=== PATIENT | male | born 1965 | race Two or more races ===

== ENCOUNTER 2024-04-29 06:31 | Inpatient (IN) | payer OTHER ==
[~2024-04-29] VITALS: Ht 180.3 cm; Wt 114.1 kg
[2024-04-29] MEDS ORDERED: IOHEXOL 350 MG/ML 100 ML VIAL ONE (06:50)
[2024-04-29] MEDS ORDERED: SODIUM CHLORIDE 0.9% 100 ML ONE (06:50)
[2024-04-29 07:01] LABS: EOSINOPHILS % (AUTO) 3.5 % (1.0-6.0); HEMATOCRIT 41.4 % (41-53); HEMOGLOBIN 13.8 g/dL (13.5-17.5); LYMPHOCYTES # (AUTO) 1.5 K/uL (1.0-4.8); MEAN CORPUSCULAR HEMOGLOBIN 30.6 pg (26.0-34.0); MEAN CORPUSCULAR HGB CONC 33.3 G/dL (31.0-37.0); MEAN CORPUSCULAR VOLUME 92 fL (80-100); MONOCYTES # (AUTO) 0.5 K/uL (0.1-1.0); NEUTROPHILS # (AUTO) 4.3 K/uL (1.8-7.7); NEUTROPHILS % (AUTO) 64.5 % (40.0-70.0); PLATELET COUNT (AUTO) 288 K/uL (150-450); RED BLOOD CELL COUNT(AUTO) 4.51 MIL/uL (4.50-5.90); RED CELL DISTRIBUTION WIDTH 14.3 % (11.5-14.5); WHITE BLOOD COUNT (AUTO) 6.7 K/uL (4.5-11.0)
[2024-04-29 07:10] LABS: ANION GAP 7 mmol/L (8-16); CALCIUM, TOTAL 9.3 mg/dL (8.8-10.5); CARBON DIOXIDE 29 mmol/L (22-29); CHLORIDE 103 mmol/L (98-107); CREATININE 1.05 mg/dL (0.60-1.30); GLOMERULAR FILTR. RATE CALC > 60 mL/min (>60); GLUCOSE,RANDOM 113 mg/dL (70-110); POTASSIUM 3.8 mmol/L (3.5-5.1); SODIUM SERUM 139 mmol/L (136-145); UREA NITROGEN, BLOOD 14 mg/dL (7-18)
[2024-04-29 07:14] LABS: PROTHROMBIN TIME 10.3 SEC (9.4-11.6)
[2024-04-29 07:16] LABS: ALANINE AMINOTRANSFERASE 26 U/L (12-78); ALBUMIN 3.6 g/dL (3.4-5.0); ALKALINE PHOSPHATASE 69 U/L (46-116); ASPARTATE AMINOTRANSFERASE 23 U/L (15-37); BILIRUBIN,TOTAL 0.3 mg/dL (0.1-1.0); CHOL/HDL RATIO 3.3 (4.2-7.3); CHOLESTEROL 157 mg/dL (131-200); HDL CHOLESTEROL 48 mg/dL (40-60); LDL CHOL (CALC.) 95 mg/dL (0-130); TRIGLYCERIDES 69 mg/dL (15-150)
[2024-04-29 07:18] LABS: TROPONIN I-HIGH SENSITIVITY 22 ng/L (<76)
[2024-04-29] MEDS: SODIUM CHLORIDE 0.9% 500 ML IV ONE (07:30)
[2024-04-29] MEDS: CLOPIDOGREL BISULFATE 75 MG TABLET PO ONE (08:03)
[2024-04-29] MEDS: ASPIRIN 81 MG CHEWABLE TABLET PO ONE (08:03)
[2024-04-29] MEDS: SODIUM CHLORIDE 0.9% 1,000 ML IV ONE (08:32)
[2024-04-29 10:34] LABS: INFLUENZA A-RTPCR,COMBO NEGATIVE (NEGATIVE); INFLUENZA B-RTPCR,COMBO NEGATIVE (NEGATIVE); RESPIRATORY SYNCYTIAL VRS-PCR NEGATIVE (NEGATIVE); SARS COVID19 RTPCR, COMBO NEGATIVE (NEGATIVE)
[2024-04-29] MEDS ORDERED: ACETAMINOPHEN 325 MG TABLET PO PRN (12:30)
[2024-04-29] MEDS ORDERED: ZOLPIDEM TARTRATE 5 MG TABLET PO PRN (12:30)
[2024-04-29] MEDS ORDERED: BISACODYL 10 MG RECTAL RECTAL SUPPOSITORY PR PRN (12:30)
[2024-04-29] MEDS ORDERED: ONDANSETRON HCL 4 MG/2 ML VIAL IVP PRN (12:30)
[2024-04-29] MEDS ORDERED: HYDROCODONE/ACETAMINOPHEN 5-325 MG TABLET PO PRN (12:30)
[2024-04-29] MEDS ORDERED: MAGNESIUM HYDROXIDE SUSPENSION 30 ML UDCUP PO PRN (12:30)
[2024-04-29 12:53] LABS: TROPONIN I-HIGH SENSITIVITY 18 ng/L (<76)
[2024-04-29 13:30] VITALS: BP 150/91; PULSE 66; RESP 18; TEMP 98
[2024-04-29] MEDS ORDERED: GADOTERATE MEGLUMINE 10 MMOL/20 ML VIAL IVP ONE (14:53)
[2024-04-29] MEDS: HEPARIN SODIUM,PORCINE 5,000 UNITS/ML VIAL SQ SCH (15:53)
[2024-04-29 16:01] VITALS: BP 143/81; PULSE 57; RESP 19; TEMP 98.4
[2024-04-29 18:49] LABS: TROPONIN I-HIGH SENSITIVITY 25 ng/L (<76)
[2024-04-29 20:41] VITALS: BP 148/91; PULSE 59; RESP 18; TEMP 98.4
[2024-04-29] MEDS: DOCUSATE SODIUM 100 MG CAPSULE PO SCH (20:41)
[2024-04-29] MEDS: ATORVASTATIN CALCIUM 20 MG TABLET PO SCH (20:41)
[2024-04-29 23:36] VITALS: BP 142/82; PULSE 55; RESP 18; TEMP 98.1
[2024-04-30 04:15] VITALS: BP 122/71; PULSE 68; RESP 18; TEMP 98
[2024-04-30 06:52] LABS: BASOPHILS % (AUTO) 0.5 % (0.0-2.0); EOSINOPHILS % (AUTO) 1.5 % (1.0-6.0); HEMATOCRIT 39.5 % (41-53); HEMOGLOBIN 13.3 g/dL (13.5-17.5); LYMPHOCYTES # (AUTO) 1.4 K/uL (1.0-4.8); LYMPHOCYTES % (AUTO) 18.6 % (22.0-44.0); MEAN CORPUSCULAR HEMOGLOBIN 30.7 pg (26.0-34.0); MEAN CORPUSCULAR HGB CONC 33.6 G/dL (31.0-37.0); MEAN CORPUSCULAR VOLUME 91 fL (80-100); MONOCYTES # (AUTO) 0.5 K/uL (0.1-1.0); MONOCYTES % (AUTO) 6.7 % (2.0-9.0); NEUTROPHILS # (AUTO) 5.5 K/uL (1.8-7.7); NEUTROPHILS % (AUTO) 72.7 % (40.0-70.0); PLATELET COUNT (AUTO) 293 K/uL (150-450); RED BLOOD CELL COUNT(AUTO) 4.33 MIL/uL (4.50-5.90); RED CELL DISTRIBUTION WIDTH 14.3 % (11.5-14.5); WHITE BLOOD COUNT (AUTO) 7.5 K/uL (4.5-11.0)
[2024-04-30 07:02] LABS: ANION GAP 8 mmol/L (8-16); CALCIUM, TOTAL 8.8 mg/dL (8.8-10.5); CARBON DIOXIDE 26 mmol/L (22-29); CHLORIDE 105 mmol/L (98-107); CHOL/HDL RATIO 3.3 (4.2-7.3); CHOLESTEROL 157 mg/dL (131-200); CREATININE 0.82 mg/dL (0.60-1.30); GLOMERULAR FILTR. RATE CALC > 60 mL/min (>60); GLUCOSE,RANDOM 97 mg/dL (70-110); HDL CHOLESTEROL 48 mg/dL (40-60); LDL CHOL (CALC.) 95 mg/dL (0-130); POTASSIUM 3.3 mmol/L (3.5-5.1); SODIUM SERUM 139 mmol/L (136-145); TRIGLYCERIDES 71 mg/dL (15-150); UREA NITROGEN, BLOOD 14 mg/dL (7-18)
[2024-04-30 08:11] VITALS: BP 132/95; PULSE 59; RESP 18; TEMP 98.2
[2024-04-30] MEDS: ASPIRIN 81 MG CHEWABLE TABLET PO SCH (09:34)
[2024-04-30] MEDS: PANTOPRAZOLE SODIUM 40 MG DR TABLET PO SCH (09:34)
[2024-04-30] MEDS: CLOPIDOGREL BISULFATE 75 MG TABLET PO SCH (09:35)
[2024-04-30] MEDS: AmLODIPine BESYLATE 5 MG TABLET PO SCH (09:35)
[2024-04-30 13:09] VITALS: BP 160/99; PULSE 67; RESP 18; TEMP 97.9
[2024-04-30 19:22] VITALS: BP 157/77; PULSE 67; RESP 18; TEMP 98.3
[2024-04-30] MEDS ORDERED: POTASSIUM CHL 10 MEQ/WATER 50 ML IV PRN (22:15)
[2024-04-30 22:50] LABS: APPEARANCE,URINE CLEAR (CLEAR); BILIRUBIN,URINE NEGATIVE (NEGATIVE); COLOR,URINE LIGHT YELLOW (YELLOW); GLUCOSE, URINE (UA) NEGATIVE (NEGATIVE); LEUKOCYTE ESTERASE ,URINE NEGATIVE (NEGATIVE); NITRATE,URINE NEGATIVE (NEGATIVE); OCCULT BLOOD,URINE NEGATIVE (NEGATIVE); PROTEIN,URINE NEGATIVE (NEGATIVE); SPECIFIC GRAVITIY, URINE 1.021 (1.003-1.030); UROBILINOGEN,URINE <=1.0 mg/dL (<=1.0)
[2024-04-30 22:57] LABS: ALCOHOL, URINE DRUG SCREEN NEGATIVE (NEGATIVE); AMPHET/METH SCREEN,URINE NEGATIVE (NEGATIVE); BARBITURATE SCREEN, URINE NEGATIVE (NEGATIVE); BENZODIAZEPINES SCREEN,URINE NEGATIVE (NEGATIVE); CANNABINOID SCREEN,URINE NEGATIVE (NEGATIVE); COCAINE SCREEN,URINE NEGATIVE (NEGATIVE); METHADONE SCREEN, URINE NEGATIVE (NEGATIVE); OPIATE SCREEN,URINE NEGATIVE (NEGATIVE); PHENCYCLIDINE SCREEN,URINE NEGATIVE (NEGATIVE)
[2024-04-30 23:04] LABS: RBC,URINE 0-2 /HPF (0-2); WBC,URINE None Seen /HPF (0-5)
[2024-04-30 23:05] LABS: BACTERIA,URINE Rare /HPF (None Seen)
[2024-04-30] MEDS: POTASSIUM CHLORIDE 20 MEQ ER TABLET PO PRN (23:36)
[2024-05-01] VITALS (7 sets, daily range): BP systolic 135–149; BP diastolic 76–99; PULSE 59–73; RESP 18–20; TEMP 97.7–98.7
[2024-05-01 06:37] LABS: BASOPHILS % (AUTO) 3.8 % (0.0-2.0); EOSINOPHILS % (AUTO) 1.9 % (1.0-6.0); HEMATOCRIT 40.4 % (41-53); HEMOGLOBIN 13.4 g/dL (13.5-17.5); LYMPHOCYTES # (AUTO) 1.4 K/uL (1.0-4.8); LYMPHOCYTES % (AUTO) 20.4 % (22.0-44.0); MEAN CORPUSCULAR HEMOGLOBIN 30.4 pg (26.0-34.0); MEAN CORPUSCULAR HGB CONC 33.2 G/dL (31.0-37.0); MEAN CORPUSCULAR VOLUME 92 fL (80-100); MONOCYTES # (AUTO) 0.5 K/uL (0.1-1.0); MONOCYTES % (AUTO) 7.7 % (2.0-9.0); NEUTROPHILS # (AUTO) 4.7 K/uL (1.8-7.7); NEUTROPHILS % (AUTO) 66.2 % (40.0-70.0); PLATELET COUNT (AUTO) 305 K/uL (150-450); RED BLOOD CELL COUNT(AUTO) 4.41 MIL/uL (4.50-5.90); RED CELL DISTRIBUTION WIDTH 14.3 % (11.5-14.5)
[2024-05-01 06:48] LABS: ANION GAP 9 mmol/L (8-16); CALCIUM, TOTAL 9.1 mg/dL (8.8-10.5); CARBON DIOXIDE 26 mmol/L (22-29); CHLORIDE 105 mmol/L (98-107); CREATININE 0.94 mg/dL (0.60-1.30); GLOMERULAR FILTR. RATE CALC > 60 mL/min (>60); GLUCOSE,RANDOM 96 mg/dL (70-110); POTASSIUM 3.8 mmol/L (3.5-5.1); SODIUM SERUM 140 mmol/L (136-145); UREA NITROGEN, BLOOD 15 mg/dL (7-18)
[2024-05-01] MEDS ORDERED: HYDROCODONE/ACETAMINOPHEN 5-325 MG TABLET PO PRN (07:30)
[2024-05-01] MEDS: HYDROCODONE/ACETAMINOPHEN 5-325 MG TABLET PO PRN (08:05)
[2024-05-01] MEDS: MORPHINE SULFATE 2 MG/ML SYRINGE IVP PRN ×2 (09:01→14:14)
[2024-05-02 04:16] VITALS: BP 135/88; PULSE 63; RESP 20; TEMP 97.8
[2024-05-02 07:45] LABS: EOSINOPHILS % (AUTO) 4.5 % (1.0-6.0); HEMATOCRIT 42.1 % (41-53); HEMOGLOBIN 13.9 g/dL (13.5-17.5); LYMPHOCYTES # (AUTO) 1.6 K/uL (1.0-4.8); LYMPHOCYTES % (AUTO) 22.7 % (22.0-44.0); MEAN CORPUSCULAR HEMOGLOBIN 30.1 pg (26.0-34.0); MEAN CORPUSCULAR VOLUME 91 fL (80-100); MONOCYTES # (AUTO) 0.7 K/uL (0.1-1.0); MONOCYTES % (AUTO) 9.3 % (2.0-9.0); NEUTROPHILS # (AUTO) 4.5 K/uL (1.8-7.7); NEUTROPHILS % (AUTO) 62.5 % (40.0-70.0); PLATELET COUNT (AUTO) 301 K/uL (150-450); RED BLOOD CELL COUNT(AUTO) 4.61 MIL/uL (4.50-5.90); RED CELL DISTRIBUTION WIDTH 14.7 % (11.5-14.5); WHITE BLOOD COUNT (AUTO) 7.2 K/uL (4.5-11.0)
[2024-05-02 08:14] LABS: ANION GAP 10 mmol/L (8-16); CALCIUM, TOTAL 9.1 mg/dL (8.8-10.5); CARBON DIOXIDE 25 mmol/L (22-29); CHLORIDE 102 mmol/L (98-107); CREATININE 1.04 mg/dL (0.60-1.30); GLOMERULAR FILTR. RATE CALC > 60 mL/min (>60); GLUCOSE,RANDOM 85 mg/dL (70-110); POTASSIUM 3.5 mmol/L (3.5-5.1); SODIUM SERUM 137 mmol/L (136-145); UREA NITROGEN, BLOOD 14 mg/dL (7-18)
[2024-05-02 08:23] VITALS: BP 137/92; PULSE 75; RESP 19; TEMP 98
[2024-05-02 11:31] VITALS: BP 140/88; PULSE 83; RESP 20; TEMP 98.1
[2024-05-02 16:00] VITALS: BP 156/96; PULSE 65; RESP 18; TEMP 98.3
[2024-05-02 19:38] VITALS: BP 141/99; PULSE 96; RESP 18; TEMP 98.3
[2024-05-03] VITALS: BP 110/75; PULSE 74; RESP 16; TEMP 98.3
[2024-05-03 05:40] VITALS: BP 122/82; PULSE 59; RESP 16; TEMP 97.7
[2024-05-03 08:09] VITALS: BP 134/82; PULSE 73; RESP 18; TEMP 98.1
[2024-05-03 11:09] VITALS: BP 137/77; PULSE 73; RESP 18; TEMP 97.2
[2024-05-03 16:00] VITALS: BP 139/82; PULSE 75; RESP 17; TEMP 97.8
== END 2024-05-03 17:45 | disposition short-term general hospital (02) | DRG 66 ==
LOC: EMS 06:31 → EDH 10:43 → 5S 13:00
PROVIDERS: ADMIT Internal Medicine; ATTEND Internal Medicine
DX: I63.9 Cerebral infarction, unspecified (principal); I16.0 Hypertensive urgency; Z20.822 Contact with and (suspected) exposure to COVID-19; E87.6 Hypokalemia; I10 Essential (primary) hypertension
CPT/HCPCS: 0241U; 70496; 70498; 70551; 70553; 71045; 80048; 80053; 80061; 80307; 81001; 82948; 83735; 84132; 84443; 84484; 85025; 85610; 85730; 86850; 86900; 86901; 92521; 92526; 93005; 93306; 93880; 97112; 97116; 97162; 97167; 97530; 97535; 99285; G0378; J1644; J2270; J7050; Q9967; 36415-L1; 36415-TC; 70450; 70450-TC